=== PATIENT | male | born 1955 | race Caucasian/White ===

== ENCOUNTER → 2016-10-04 | Outpatient (CLI) | payer BC, OTHER | LOC: LAB 07:42 | PROVIDERS: ATTEND Family Medicine | DX: E06.3 Autoimmune thyroiditis (principal); E03.9 Hypothyroidism, unspecified; E78.5 Hyperlipidemia, unspecified; I10 Essential (primary) hypertension | CPT/HCPCS: 84439; 86376; 86800 ==

== ENCOUNTER → 2016-12-21 | Outpatient (CLI) | payer BC, OTHER ==
[2016-12-21 09:38] LABS: BLOOD UREA NITROGEN 17 mg/dL (7-22); BUN/CREATININE RATIO 21.25 (6-20); CALCIUM 9.7 mg/dL (8.7-10.7); EST GLOMERULAR FILTRATION > 60 (>60 ml/min/1.73m(2)); PHOSPHORUS 2.4 mg/dl (2.4-4.3)
== END ==
LOC: LAB 08:06
PROVIDERS: ATTEND Internal Medicine Nephrology
DX: I12.9 Hypertensive chronic kidney disease with stage 1 through stage 4 chronic kidney disease, or unspecified chronic kidney disease (principal); N18.9 Chronic kidney disease, unspecified; D63.1 Anemia in chronic kidney disease; N25.81 Secondary hyperparathyroidism of renal origin
CPT/HCPCS: 36415; 80069; 83970

== ENCOUNTER → 2017-01-10 | Outpatient (CLI) | payer BC, OTHER ==
[2017-01-10 11:51] LABS: BILIRUBIN,URINE NEGATIVE (NEG); CLARITY,URINE CLEAR (CLEAR); COLOR,URINE YELLOW; GLUCOSE, URINE (UA) NEGATIVE (NEG); NITRATE,URINE NEGATIVE (NEG); OCCULT BLOOD,URINE NEGATIVE (NEG); PROTEIN,URINE 30 mg/dl (NEG); UROBILINOGEN,URINE 0.2 EU/dL (0.2)
[2017-01-10 12:09] LABS: URINE SAMPLE TYPE RANDOM
[2017-01-10 12:10] LABS: RBC,URINE 0-2 /hpf; WBC,URINE 0-2
== END ==
LOC: LAB 10:31
PROVIDERS: ATTEND Internal Medicine Nephrology
DX: N39.0 Urinary tract infection, site not specified (principal)
CPT/HCPCS: 81001

== ENCOUNTER → 2017-02-04 | Outpatient (CLI) | payer BC, OTHER ==
[2017-02-04 09:57] LABS: FREE T4 (FREE THYROXINE) 2.07 ng/dL (0.93-1.71)
== END ==
LOC: LAB 08:58
PROVIDERS: ATTEND Family Medicine
DX: E03.9 Hypothyroidism, unspecified (principal); Z12.5 Encounter for screening for malignant neoplasm of prostate
CPT/HCPCS: 36415; 84439; 84443; G0103

== ENCOUNTER → 2017-03-19 | Outpatient (CLI) | payer BC, OTHER ==
[2017-03-19 14:06] LABS: BILIRUBIN,URINE NEGATIVE (NEG); CLARITY,URINE CLEAR (CLEAR); COLOR,URINE YELLOW; GLUCOSE, URINE (UA) NEGATIVE (NEG); NITRATE,URINE NEGATIVE (NEG); OCCULT BLOOD,URINE NEGATIVE (NEG); PROTEIN,URINE 100 mg/dl (NEG); UROBILINOGEN,URINE 0.2 EU/dL (0.2)
[2017-03-19 14:10] LABS: URINE SAMPLE TYPE CLEAN CATCH URINE
[2017-03-19 14:11] LABS: RBC,URINE 0 /hpf; SQUAMOUS EPITHELIAL CELL,UR RARE; WBC,URINE 0-1
== END ==
LOC: LAB 12:57
PROVIDERS: ATTEND Urology
DX: R31.29 Other microscopic hematuria (principal)
CPT/HCPCS: 81001; 81003